=== PATIENT | male | born 1985 | race Caucasian/White ===

== ENCOUNTER 2017-10-01 09:19 | Emergency (ER) | payer OTHER, SELFPAY | END 2017-10-01 09:50 | disposition home or self-care (01) | LOC: SCSER 09:19 | DX: J40 Bronchitis, not specified as acute or chronic (principal); Z79.899 Other long term (current) drug therapy | CPT/HCPCS: 99283 ==

== ENCOUNTER 2017-12-27 00:31 | Emergency (ER) | payer SELFPAY ==
[2017-12-27 00:45] LABS: Bilirubin Negative (Negative); Blood, Urine Negative (Negative); Clarity Clear (Clear); Glucose, Urine (Dipstick) Negative (Negative); Leukocyte Negative (Negative); Nitrite Negative (Negative); Protein, Urine (Dipstick) Negative (Neg-Trace); Urobilinogen 0.2 mg/dL (0.2-1.0)
--- NOTE | 2017-12-27 07:58 | CT ---
CT ABDOMEN AND PELVIS WITHOUT CONTRAST STONE PROTOCOL: HISTORY: Left flank pain. COMPARISON: None. FINDINGS: Lung bases are clear. No pericardial effusion. There is a punctate calculus inferior collecting system on the right. No evidence of hydroureteral n ephrosis. No secondary evidence of recently passed stone. IMPRESSION: Punctate nonobstructing calculus inferior right renal collecting system. POS: SIRI
== END 2017-12-27 02:05 | disposition home or self-care (01) ==
LOC: SCSER 00:31
DX: M54.5 Low back pain (principal); F31.9 Bipolar disorder, unspecified; F17.210 Nicotine dependence, cigarettes, uncomplicated; Z79.899 Other long term (current) drug therapy
CPT/HCPCS: 74176; 81003

== ENCOUNTER 2018-01-19 22:02 | Emergency (ER) | payer SELFPAY ==
[2018-01-19] MEDS ORDERED: Ketorolac Tromethamine 30 MG/ML VIAL ONE (22:32)
== END 2018-01-19 22:50 | disposition home or self-care (01) ==
LOC: SCSER 22:02
DX: S33.5XXA Sprain of ligaments of lumbar spine, initial encounter (principal); F31.9 Bipolar disorder, unspecified; Z79.899 Other long term (current) drug therapy; V89.2XXA Person injured in unspecified motor-vehicle accident, traffic, initial encounter
CPT/HCPCS: 96372; J1885

== ENCOUNTER 2019-10-16 04:28 | Emergency (ER) | payer SELFPAY | END 2019-10-16 05:25 | disposition home or self-care (01) | LOC: ERS 04:28 | DX: J11.1 Influenza due to unidentified influenza virus with other respiratory manifestations (principal); F31.9 Bipolar disorder, unspecified; F41.9 Anxiety disorder, unspecified; F17.210 Nicotine dependence, cigarettes, uncomplicated | CPT/HCPCS: 87804; 99281 ==

== ENCOUNTER 2019-10-16 22:30 | Emergency (ER) | payer SELFPAY ==
[2019-10-16] MEDS ORDERED: Acetaminophen 500 MG TAB ONE (22:40)
[2019-10-16 23:04] LABS: #Lymphocytes 0.6 thou/uL (1.20-3.40); #Monocytes 0.6 thou/uL (0.11-0.59); #Neutrophils 4.2 thou/uL (1.40-6.50); %Basophils 0.2 % (0.0-1.0); %Eosinophils 0.3 % (0.0-10.0); %Lymphocytes 11.6 % (21.0-51.0); %Monocytes 10.6 % (0.0-10.0); %Neutrophils 77.4 % (42.0-75.0); Hemoglobin 14.9 g/dL (14.0-18.0); Mean Corpuscular HGB CONC 34.3 g/dL (32.0-36.0); Mean Corpuscular Hemoglobin 31.3 pg (27.0-31.0); Mean Corpuscular Volume 91.4 fL (78.0-98.0); Mean Platelet Volume 8.5 fL (7.4-10.4); Platelet Count 151 thou/uL (130-400); RBC Distribution Width 11.4 % (11.5-14.5); Red Blood Cell (RBC) Count 4.76 mill/uL (4.70-6.10); White Blood Cell (WBC) Count 5.4 thou/uL (4.8-10.8)
--- NOTE | 2019-10-16 23:18 | RAD ---
RADIOGRAPH CHEST 1 VIEW: DATE: 10/16/2019 HISTORY: 34-year-old male with cough and fever FINDINGS: The visualized lung roque are clear. The cardiomediastinal silhouette and hilar shadows are normal. The lateral costophrenic angles are sharp. The osseous structures appear normal. There is no pneumothorax. IMPRESSION: Negative.
[2019-10-16 23:26] LABS: ALT (SGPT) 24 U/L (8-55); AST (SGOT) 21 U/L (5-34); Alkaline Phosphatase 56 U/L (40-110); Anion Gap 11 mmol/L (10-20); BUN (Urea Nitrogen) 10 mg/dL (8.9-20.6); Bilirubin, Total 0.3 mg/dL (0.2-1.2); Calc. Creatinine Clearance 0 mL/min (70-130); Calcium 8.6 mg/dL (7.8-10.44); Carbon Dioxide 28 mmol/L (22-29); Chloride 103 mmol/L (98-107); Estimated GFR-MDRD 82; Globulin 2.3 g/dL (2.4-3.5); Glucose 116 mg/dL (70-105); Potassium 3.5 mmol/L (3.5-5.1); Protein, Total 6.3 g/dL (6.0-8.3); Sodium 138 mmol/L (136-145)
== END 2019-10-16 23:50 | disposition home or self-care (01) ==
LOC: ERS 22:30
DX: J11.1 Influenza due to unidentified influenza virus with other respiratory manifestations (principal)
CPT/HCPCS: 36415; 71045; 80053; 85025

== ENCOUNTER 2021-06-16 12:48 | Emergency (ER) | payer SELFPAY ==
[2021-06-16] MEDS ORDERED: Ketorolac Tromethamine 30 MG/ML VIAL ONE (15:12)
== END 2021-06-16 16:15 | disposition home or self-care (01) ==
LOC: ERS 12:48
DX: S02.2XXA Fracture of nasal bones, initial encounter for closed fracture (principal); S20.212A Contusion of left front wall of thorax, initial encounter; F17.210 Nicotine dependence, cigarettes, uncomplicated; W22.8XXA Striking against or struck by other objects, initial encounter
CPT/HCPCS: 70486; 71046; 96372; J1885

== ENCOUNTER 2022-07-22 17:43 | Emergency (ER) | payer SELFPAY | END 2022-07-22 20:51 | disposition home or self-care (01) | LOC: ERS 17:43 | DX: R68.84 Jaw pain (principal); F17.210 Nicotine dependence, cigarettes, uncomplicated | CPT/HCPCS: 99283 ==

== ENCOUNTER 2023-03-27 11:12 | Emergency (ER) | payer SELFPAY | END 2023-03-27 11:45 | disposition home or self-care (01) | LOC: ERS 11:12 | DX: S60.042A Contusion of left ring finger without damage to nail, initial encounter (principal); R21 Rash and other nonspecific skin eruption; F17.210 Nicotine dependence, cigarettes, uncomplicated; W23.0XXA Caught, crushed, jammed, or pinched between moving objects, initial encounter | CPT/HCPCS: 99283 ==

== ENCOUNTER 2023-05-03 07:35 | Emergency (ER) | payer SELFPAY ==
[2023-05-03] MEDS ORDERED: Ketorolac Tromethamine 30 MG/ML VIAL ONE (08:01)
[2023-05-03] MEDS ORDERED: Dexamethasone 4 MG TAB ONE (08:02)
== END 2023-05-03 08:50 | disposition home or self-care (01) ==
LOC: ERS 07:35
DX: M25.511 Pain in right shoulder (principal); F17.210 Nicotine dependence, cigarettes, uncomplicated
CPT/HCPCS: 96372; 99283; J1885; J8540

== ENCOUNTER 2023-05-28 08:34 | Emergency (ER) | payer SELFPAY | END 2023-05-28 08:54 | disposition home or self-care (01) | LOC: ERS 08:34 | DX: J06.9 Acute upper respiratory infection, unspecified (principal); F17.210 Nicotine dependence, cigarettes, uncomplicated; Z20.822 Contact with and (suspected) exposure to COVID-19 | CPT/HCPCS: 99283 ==

== ENCOUNTER 2023-07-17 22:05 | Emergency (ER) | payer SELFPAY ==
[2023-07-17] MEDS ORDERED: Ketorolac Tromethamine 30 MG/ML VIAL ONE (23:11)
[2023-07-17] MEDS ORDERED: Dexameth. Sod Phosp. 10 MG/ML (CHEMO USE ONLY) ONE (23:11)
[2023-07-17] MEDS ORDERED: Clindamycin/D5W 600 MG in Premix 1 BAG IVPB SCH (23:30)
[2023-07-17] MEDS ORDERED: Clindamycin/D5W 900 MG in Premix 1 BAG IVPB SCH (23:30)
== END 2023-07-18 00:09 | disposition home or self-care (01) ==
LOC: ERS 22:05
DX: K04.7 Periapical abscess without sinus (principal); F17.210 Nicotine dependence, cigarettes, uncomplicated
CPT/HCPCS: 96365; 96375; J1100; J1885; J3490

== ENCOUNTER 2023-09-03 07:45 | Emergency (ER) | payer SELFPAY | END 2023-09-03 08:37 | disposition home or self-care (01) | LOC: ERS 07:45 | DX: J20.8 Acute bronchitis due to other specified organisms (principal); F17.210 Nicotine dependence, cigarettes, uncomplicated | CPT/HCPCS: 71045 ==